=== PATIENT | female | born 1995 | race Two or more races ===

== ENCOUNTER 2024-10-23 22:44 | Emergency (ER) | payer MEDICAID, SELFPAY ==
[2024-10-23 22:45] VITALS: BMI 35.4
[2024-10-23 23:27] VITALS: BP 131/80; PULSE 68; RESP 18; TEMP 36.8; O2SAT 99
--- NOTE | 2024-10-24 00:30 | PD.EDRME ---
Rapid Medical Screening Exam RME Arrival date/time: 10/23/24 22:44 Chief Complaint: Abdominal Pain Time Seen by Provider: 10/24/24 00:12 Vital signs: Vital Signs Temperature 98.3 F 10/23/24 23:27 Pulse Rate 68 10/23/24 23:27 Respiratory Rate 18 10/23/24 23:27 Blood Pressure 131/80 H 10/23/24 23:27 Pulse Oximetry (%) 99 10/23/24 23:27 Oxygen Delivery Method Room Air 10/23/24 23:27 Vital signs reviewed by provider: Yes RME Narrative: 28-year-old female presents to the ED with a complaint of right lower quadrant abdominal pain. She states it began approximately 2 weeks and has become progressively worse. Last menstrual period was 09/24. She has had associated nausea and vomiting and states that today she passed out twice. She denies fever but has had chills. She denies diarrhea or constipation. I have greeted and performed a focused initial assessment of this patient. A comprehensive ED assessment and evaluation of the patient, analysis of all test results, and completion of the medical decision making process will be conducted by additional ED providers.
--- NOTE | 2024-10-24 00:32 | XR_ITS ---
Examination: Pelvic ultrasound, transabdominal, complete Technique: Transabdominal ultrasound of the pelvis performed using grayscale imaging Date and time of exam: October 24, 2024 0102 hours INDICATIONS: Right-sided pelvic pain beginning 2 weeks ago FINDINGS: Uterus 8.2 cm endometrial stripe 0.8 cm No uterine mass or intrauterine gestation Right ovary 3.4 cm arterial flow Left ovary 3.9 cm arterial flow IMPRESSION: Negative examination
[2024-10-24 01:14] LABS: Basophils % (Auto) 0 % (0-2.5); Eosinophils # (Auto) 0.4 Thou/mm3 (0.0-0.5); Eosinophils % (Auto) 5 % (0-10); Hematocrit 40.4 % (36.0-46.0); Hemoglobin 14.4 g/dL (12.0-16.0); Immature Granulocytes % (Auto) 0 % (0-0); Immature Granulocytes Auto 0.02 Thou/mm3 (0.00-0.00); Lymphocytes % (Auto) 39 % (10-50); Mean Corpuscular HGB Conc 35.6 g/dl (31.0-37.0); Mean Corpuscular Hemoglobin 30.4 pg (25.0-35.0); Mean Corpuscular Volume 85 fL (80-100); Monocytes # (Auto) 0.6 Thou/mm3 (0.0-0.8); Monocytes % (Auto) 8 % (0-12); Neutrophils # (Auto) 3.6 Thou/mm3 (1.8-7.7); Neutrophils % (Auto) 47 % (37-80); Nucleated Red Blood Cell % 0 /100 WBC (0); Platelet Count 229 Thou/mm3 (140-440); RDW Standard Deviation 40.2 fL (36.4-46.3); Red Blood Count 4.73 Miln/mm3 (4.00-5.20); White Blood Count 7.6 Thou/mm3 (3.6-11.0)
[2024-10-24 01:32] LABS: Alanine Aminotransferase 19 U/L (10-49); Albumin, Serum 4.6 gm/dL (3.5-5.0); Albumin/Globulin Ratio 1.5 (1.2-2.2); Alkaline Phosphatase 51 U/L (46-116); Amylase 83 U/L (30-118); Anion Gap 9 (7-16); Aspartate Amino Transferase 23 U/L (0-34); BUN/Creatinine Ratio 17 Ratio (12-20); Bilirubin,Total 0.6 mg/dL (0.3-1.2); Blood Urea Nitrogen 17 mg/dL (9-23); Calcium 8.6 mg/dL (8.3-10.6); Calcium (Corrected) 8.6 mg/dL (8.5-10.1); Carbon Dioxide 27.1 mMol/L (20.0-31.0); Chloride 104 mMol/L (98-107); Glucose 86 mg/dL (74-106); Lipase 52 U/L (12-53); Osmolality,Calculated 279 (275-295); Potassium 3.9 mMol/L (3.4-5.1); Sodium 140 mMol/L (136-145); Total Protein 7.6 gm/dL (5.7-8.2); eGFR > 60 See Note
[2024-10-24 01:59] LABS: Collection Type, Urine Clean Catch
[2024-10-24 02:07] LABS: HCG Qualitative,Urine Negative
[2024-10-24 02:09] LABS: Bacteria,Urine 2+; Bilirubin,Urine Negative (Negative); Blood,Urine Negative (Negative); Clarity,Urine Clear (Clear/Hazy); Color,Urine Lt-Yellow (Lt Yel-Yel); Glucose, Urine Negative (Negative); Ketones,Urine Trace (Negative); Leukocyte Esterase,Urine Negative (Negative); Nitrite,Urine Negative (Negative); Protein,Urine Trace (Neg - Trace); RBC,Urine 6 /hpf (0-3); Specific Gravity,Urine 1.036 (1.001-1.035); Squamous Epithelial Cell,Urine 3 /hpf (0-5); Urobilinogen,Urine Negative mg/dL (0.0-1.0); WBC,Urine 3 /hpf (0-5)
--- NOTE | 2024-10-24 02:48 | PRELIM_ITS ---
Pelvic ultrasound (transabdominal) with Doppler and wave Doppler spectral analysis. October 24, 2024 0102 hours Clinical history: Abdominal pain. Technique: Real-time, grayscale, transabdominal pelvic ultrasound was performed using Duplex scanning including arterial inflow, venous outflow, color and spectral Doppler. Comparison: No prior study is available for comparison. Findings: The uterus is normal in size measuring 8.2 x 5.5 x 4.2 cm. The endometrium is unremarkable and measures 0.8 cm. The right ovary measures 3.4 x 2.4 x 2.5 cm and is unremarkable. The left ovary measures 3.9 x 3.3 x 3.5 cm and is unremarkable. Both ovaries demonstrate color flow and spectral waveforms on Doppler evaluation. There is no adnexal mass. There is no free fluid on the submitted images. Impression: Unremarkable pelvic sonogram. No evidence of ovarian torsion. Report Electronically Signed By: Ramon Wright 10/24/2024 2:47:58 AM [EST]
[2024-10-24 04:54] VITALS: BP 118/68; PULSE 68; RESP 18; TEMP 36.7; O2SAT 98
--- NOTE | 2024-10-24 05:00 | PD.EDABDPN ---
ED Abdominal Pain RME/HPI General Chief Complaint: Abdominal Pain Stated complaint: RIGHT LOWER ABDOMINAL PAIN Time seen by provider: 10/24/24 00:12 Arrival date/time: 10/23/24 22:44 RME / HPI RME / HPI narrative: 28-year-old female presents to the ED with a complaint of right lower quadrant abdominal pain. She states it began approximately 2 weeks and has become progressively worse. Last menstrual period was 09/24. She has had associated nausea and vomiting and states that today she passed out twice. She denies fever but has had chills. She denies diarrhea or constipation. I have greeted and performed a focused initial assessment of this patient. A comprehensive ED assessment and evaluation of the patient, analysis of all test results, and completion of the medical decision making process will be conducted by additional ED providers. Related Data Previous Rx's ?Medication ?Instructions ?Recorded Hydrocodone/Acetaminophen * (NORCO 1 - 2 tab PO Q4H PRN PAIN #10 tabs 05/23/16 5/325 *) meloxicam 15 mg tablet 15 mg PO QDAY Pain #10 tabs 10/24/24 Allergies Allergy/AdvReac Type Severity Reaction Status Date / Time NKA* Allergy Uncoded 12/11/21 10:59 Course Orders Category Date Time Status NPO STAT Care 10/24/24 00:32 Active US pelvic complete Stat Exams 10/24/24 00:32 Taken Amylase Stat Lab 10/24/24 00:59 Completed CBC Stat Lab 10/24/24 00:59 Completed Comprehensive Metabolic Panel Stat Lab 10/24/24 00:59 Completed HCG Qualitative,Urine Stat Lab 10/24/24 01:52 Completed Lipase Stat Lab 10/24/24 00:59 Completed Urinalysis Stat Lab 10/24/24 01:52 Completed Urine Culture Stat Lab 10/24/24 00:32 Received Ketorolac Inj [Toradol Inj] Med 10/24/24 04:59 Once 30 mg IM X1 ONE Vital Signs Vital signs: Vital Signs Temperature 98.3 F 10/23/24 23:27 Pulse Rate 68 10/23/24 23:27 Respiratory Rate 18 10/23/24 23:27 Blood Pressure 131/80 H 10/23/24 23:27 Pulse Oximetry (%) 99 10/23/24 23:27 Oxygen Delivery Method Room Air 10/23/24 23:27 Abdominal Pain MDM Medications / Prescriptions Medication administrations:: Medication Administration History Ketorolac Tromethamine (Ketorolac Inj 60 Mg/2 Ml Vial) 30 mg IM X1 ONE Stop: 10/24/24 05:00 Discharge Plan Plan Patient Disposition: HOME (Self Care) Discharge Disposition comment: Stable and Improved Prescriptions/Referrals Prescriptions/Med Rec: New meloxicam 15 mg tablet 15 mg PO QDAY Qty: 10 0RF Rx Instructions: Do not start this medication until Friday morning. No Action Hydrocodone/Acetaminophen * (NORCO 5/325 *) 1 TAB tablet 1 - 2 tab PO Q4H PRN (Reason: PAIN) Qty: 10 0RF Rx Instructions: FOR PAIN Referrals: Jake Calvillo FNP [Primary Care Provider] - In 1 week Problem List Clinical Impression: Ruptured ovarian cyst Patient/Caregiver Discharge Instructions Education Materials: ED Ovarian Cyst Additional Instructions: It is likely that the cyst on your ovary that was previously noted on ultrasound from September 24, has ruptured, which is causing your pain. Follow-up with your primary care physician in 24 to 48 hours. Return to the ED for any new or worsening symptoms. Print Language: Brazilian Stand Alone Forms: Mikki Award Info., Patient Portal Info Letter ANSLEY/MIKE Supervising Physician ANSLEY/MIKE Supervising Physician: Dr. Whitley
[2024-10-24] MEDS: KETOROLAC INJ 30 MG/ML VIAL IM (05:04)
== END 2024-10-24 05:09 | disposition home or self-care (01) ==
PROVIDERS: Physician Assistant; Emergency Provider Emergency Medicine; PCP Nurse Practitioner Family
DX: N83.201 Unspecified ovarian cyst, right side (principal)
CPT/HCPCS: 36415; 76856; 80053; 81001; 81025; 82150; 83690; 85025; 87086; 96372; 99284; J1885

== ENCOUNTER 2024-11-09 13:57 | Emergency (ER) | payer MEDICAID, SELFPAY ==
[2024-11-09 13:58] VITALS: BMI 35.4
--- NOTE | 2024-11-09 14:04 | EKG_ITS ---
[facility] Test Date: 2024-11-09 Pat Name: FROILAN GODDARD Department: Room: - Gender: Female [employer]: : 1995 Requested By: ED Temporary Provider Order Number: [id number] Reading MD: ED Temporary Provider Measurements Intervals Dewey Rate: 81 P: 32 MO: 151 QRS: 2 QRSD: 86 T: 9 QT: 379 QTc: 442 Interpretive Statements SINUS RHYTHM POSSIBLE ANTERIOR MYOCARDIAL INFARCTION , PROBABLY OLD [30 ms Q WAVE IN V3/V4, OR R < 0.2 mV IN V4] No previous ECG available for comparison /store/S0/[id number].pdf
[2024-11-09 14:09] VITALS: BP 116/78; PULSE 87; RESP 20; TEMP 36.6; O2SAT 96
--- NOTE | 2024-11-09 14:15 | XR_ITS ---
Examination: CT brain head without contrast. 2-D sagittal coronal reconstructions Date and time of exam:November 09, 2024 1436 hours INDICATIONS: Patient fell today with injury to the forehead, including laceration CTDI: vol (mGy):49.7 DLP: (mGycm):944 Technique: Multiple CT axial sections of the brain have been obtained, 5 mm slice thickness. Contrast has not been administered. 2-D sagittal, coronal reconstructions have been obtained Low dose protocols were performed. One or more of the following dose reduction techniques were used; automated exposure control, adjustment of the mA and/or KV according to patient size, use of iterative reconstruction technique. Findings: No significant ventricular enlargement. Soft tissue defect right forehead soft tissue, image 27 Intra-axial or extra-axial hemorrhage density is not seen. No mass effect or midline shift Basal cisterns are not remarkable. Fourth ventricle is midline. Cranial vault intact. Significant maxillary antral ethmoid sinusitis Impression: Negative for acute hemorrhage, mass effect or midline shift
--- NOTE | 2024-11-09 14:16 | EDRME_ITS ---
Rapid Medical Screening Exam [facility] Arrival date/time: 11/09/24 13:57 28-year-old female with no known medical history presents to the emergency room with a chief complaint of dizziness, lightheadedness, and a syncopal episode that occurred 1 hour ago while trying to get in the shower. Patient states she lost consciousness and now has a laceration to her right eyebrow. I have greeted and performed a focused initial assessment of this patient. A comprehensive ED assessment and evaluation of the patient, analysis of all test results, and completion of the medical decision making process will be conducted by additional ED providers. Chief Complaint: Syncope / Near Syncope Vital signs: Vital Signs Temperature 97.8 F 11/09/24 14:09 Pulse Rate 87 11/09/24 14:09 Respiratory Rate 20 11/09/24 14:09 Blood Pressure 116/78 11/09/24 14:09 Pulse Oximetry (%) 96 11/09/24 14:09 Oxygen Delivery Method Room Air 11/09/24 14:09 Vital signs reviewed by provider: Yes
[2024-11-09 15:06] LABS: Basophils % (Auto) 0 % (0-2.5); Eosinophils # (Auto) 0.2 Thou/mm3 (0.0-0.5); Eosinophils % (Auto) 2 % (0-10); Hematocrit 41.1 % (36.0-46.0); Hemoglobin 14.9 g/dL (12.0-16.0); Immature Granulocytes % (Auto) 0 % (0-0); Immature Granulocytes Auto 0.01 Thou/mm3 (0.00-0.00); Lymphocytes # (Auto) 1.4 Thou/mm3 (1.0-4.8); Lymphocytes % (Auto) 16 % (10-50); Mean Corpuscular HGB Conc 36.3 g/dl (31.0-37.0); Mean Corpuscular Volume 83 fL (80-100); Monocytes # (Auto) 0.5 Thou/mm3 (0.0-0.8); Monocytes % (Auto) 6 % (0-12); Neutrophils # (Auto) 6.5 Thou/mm3 (1.8-7.7); Neutrophils % (Auto) 76 % (37-80); Nucleated Red Blood Cell % 0 /100 WBC (0); Platelet Count 239 Thou/mm3 (140-440); RDW Standard Deviation 38.2 fL (36.4-46.3); Red Blood Count 4.97 Miln/mm3 (4.00-5.20); White Blood Count 8.5 Thou/mm3 (3.6-11.0)
[2024-11-09 15:32] LABS: Alanine Aminotransferase 19 U/L (10-49); Albumin, Serum 4.4 gm/dL (3.5-5.0); Albumin/Globulin Ratio 1.6 (1.2-2.2); Alkaline Phosphatase 53 U/L (46-116); Anion Gap 10 (7-16); BUN/Creatinine Ratio 16 Ratio (12-20); Bilirubin,Total 0.6 mg/dL (0.3-1.2); Blood Urea Nitrogen 13 mg/dL (9-23); Calcium 8.7 mg/dL (8.3-10.6); Calcium (Corrected) 8.7 mg/dL (8.5-10.1); Carbon Dioxide 26.1 mMol/L (20.0-31.0); Chloride 105 mMol/L (98-107); Creatinine (Component) 0.8 mg/dL (0.6-1.3); Estimated Creatinine Clearance 109.9 mL/min (>60); Globulin 2.8 gm/dL (2.3-3.5); Glucose 99 mg/dL (74-106); Magnesium 1.9 mg/dL (1.6-2.6); Osmolality,Calculated 281 (275-295); Sodium 141 mMol/L (136-145); Total Protein 7.2 gm/dL (5.7-8.2); Troponin I < 0.020 ng/mL (0.0-0.045); eGFR > 60 See Note
[2024-11-09 15:34] LABS: Collection Type, Urine Clean Catch
[2024-11-09 15:39] LABS: Bacteria,Urine Rare; Bilirubin,Urine Negative (Negative); Blood,Urine Negative (Negative); Color,Urine Yellow (Lt Yel-Yel); Glucose, Urine Negative (Negative); Ketones,Urine Negative (Negative); Leukocyte Esterase,Urine Negative (Negative); Nitrite,Urine Negative (Negative); PH,Urine 5.5 (5.0-7.0); Protein,Urine 1+ (Neg - Trace); RBC,Urine 4 /hpf (0-3); Squamous Epithelial Cell,Urine 17 /hpf (0-5); Urobilinogen,Urine Negative mg/dL (0.0-1.0); WBC,Urine 2 /hpf (0-5)
[2024-11-09 15:39] LABS: B-Type Natriuretic Peptide < 20 pg/mL (0-100)
[2024-11-09 15:46] LABS: HCG Qualitative,Urine Negative
[2024-11-09 16:09] LABS: Clarity,Urine Hazy (Clear/Hazy)
[2024-11-09 17:46] VITALS: BP 102/64; PULSE 72; RESP 20; TEMP 36.6; O2SAT 97
[2024-11-09 18:43] VITALS: BP 121/77; PULSE 74; RESP 18; TEMP 36.8; O2SAT 94
[2024-11-09 18:46] LABS: Amphetamine/Methamp Scrn,U Negative (Negative); Barbiturate Screen,Urine Negative (Negative); Benzodiazepines Screen,Urine Negative (Negative); Benzoylecgonine Screen, Ur Negative (Negative); Fentanyl Screen,Urine Negative (Negative); Opiate Screen,Urine Negative (Negative); THC Screen,Urine Negative (Negative)
[2024-11-09] MEDS: DIPHTH,PERTUSS(ACELL),TET VAC 0.5 ML SYR- ADULT IMi (18:47)
[2024-11-09] MEDS: LIDOCAINE HCL 1% 20 ML VIAL INFL (18:49)
[2024-11-09 19:06] VITALS: BP 107/84; PULSE 75; RESP 14; TEMP 37; O2SAT 99
--- NOTE | 2024-11-09 21:36 | XR_ITS ---
Examination: Carotid arterial duplex scan, ultrasound. Date and time of exam: November 09, 2024 2146 hours INDICATIONS: Loss of consciousness episodes today Technique: Multiple sonographic images have been obtained of the carotid arteries and vertebral arteries, B-mode/grayscale imaging and Doppler spectral analysis and color flow Peak systolic and diastolic velocities have been recorded. Systolic diastolic ratios have been calculated. Findings: Right peak systolic velocities: Distal internal carotid artery peak systolic velocity is 0.8 M/sec Proximal internal carotid artery peak systolic velocity is 0.6 M/sec Carotid bifurcation peak systolic velocity is 1.1 M/sec External carotid artery peak systolic velocity is in M/sec Vertebral artery flow is antegrade. Left peak systolic velocities: Distal internal carotid artery peak systolic velocity is 0.7, M/sec Proximal internal carotid artery peak systolic velocity is 0.6 M/sec Carotid bifurcation peak systolic velocity is 1.3 M/sec External carotid artery peak systolic velocity is 0.9 M/sec Vertebral artery flow is antegrade Doppler waveform analysis demonstrates no spectral broadening Impression: Right internal carotid artery demonstrates 0-10% stenosis. Left internal carotid artery demonstrates 0-10% stenosis.
[2024-11-09] MEDS: BACITRACIN OINT 1 GM PACKET TOP (21:39)
--- NOTE | 2024-11-09 22:24 | EDNOTE_ITS ---
ED Syncope RME/HPI General Chief Complaint: Syncope / Near Syncope Stated Complaint: PASSED OUTx2 AND HIT HEAD, LAC TO FOREHEAD Time Seen by Provider: 11/09/24 18:34 Arrival date/time: 11/09/24 13:57 RME / HPI RME / HPI narrative: 11/09/24 13:57 28-year-old female with no known medical history presents to the emergency room with a chief complaint of dizziness, lightheadedness, and a syncopal episode that occurred 1 hour ago while trying to get in the shower. Patient states she lost consciousness and now has a laceration to her right eyebrow. I have greeted and performed a focused initial assessment of this patient. A comprehensive ED assessment and evaluation of the patient, analysis of all test results, and completion of the medical decision making process will be conducted by additional ED providers. --------- Dr. Cardenas?s Main ED Evaluation: 28yo female with no significant past medical history presents to the ED for a chief complaint of syncope. Patient states she was taking a shower when she passed out, reporting she did hit her head. Patient states she was crawling out of the shower and passed out again, so she came in for evaluation. Patient denies any neck pain, chest pain, abdominal pain, extremity pain, shortness of breath or any other associated symptoms. Related Data Previous Rx's ?Medication ?Instructions ?Recorded Hydrocodone/Acetaminophen * (NORCO 1 - 2 tab PO Q4H DC N PAIN #10 tabs 05/23/ 5/325 *) meloxicam 15 mg tablet 15 mg PO QDAY Pain #10 tabs 10/24/24 Allergies Allergy/AdvReac Type Severity Reaction Status Date / Time COVID-19 (SARS-CoV-2) Allergy Severe Difficulty Verified 11/09/24 14:03 vaccine, angelita Breathing Review of Systems Review of Systems Systems Reviewed: All systems reviewed, normal except as documented Past Medical History Past Medical History CARDIAC: Negative Congestive Heart Failure RESPIRATORY: Negative Chronic Obstructive Pulmonary Disease (COPD) GENITOURINARY: Negative Renal Disease ENDOCRINE: Negative Diabetes Mellitus Type 1 or Diabetes Mellitus Type 2 Social History SMOKING STATUS: Never smoker ED Exam Narrative Physical exam: GENERAL APPEARANCE: alert and oriented x 4, well-developed, well-nourished, no acute distress VITALS: All vitals were reviewed and the pulse ox is 99% on room air, which is normal according to my interpretation. HEENT: Normocephalic, 3 cm in length by 0.75 cm deep curvelinear laceration through the medial portion of the right eyebrow; pupils equal, round, reactive to light; EOMI; mucous membranes pink, moist; oropharynx clear NECK: Supple LUNGS: CTABL; no wheezes, no rales, no rhonchi HEART: Regular rate, regular rhythm; normal S1, S2; no murmurs ABDOMEN: non distended; normal BS; soft, no tenderness, no guarding, no rebound; no masses, no organomegaly, no hernia BACK: no CVA tenderness EXTREMITIES: atraumatic; no edema NEUROLOGIC: awake; alert and oriented x4; cranial nerves II-XII grossly intact; no focal sensory or motor deficits PSYCHIATRIC: appropriate mood and affect SKIN: warm, dry, normal color; no rashes Course Quality Measures none Orders Category Date Time Status EKG (ED ONLY) *Do not use* NOW Care 11/09/24 14:04 Completed Irrigate Wound NOW Care 11/09/24 20:03 Active Set Up Suture Tray STAT Care 11/09/24 14:15 Active Wound Care NOW Care 11/09/24 14:[address] head/brain wo con Stat Exams 11/09/24 14:15 Completed EKG (ED Only) Stat Exams 11/09/24 14:04 Draft US carotid duplex Stat Exams 11/09/24 21:36 Completed B-Type Natriuretic Peptide Stat Lab 11/09/24 14:53 Completed CBC Stat Lab 11/09/24 14:53 Completed Comprehensive Metabolic Panel Stat Lab 11/09/24 14:53 Completed Drug Screen,Urine Stat Lab 11/09/24 15:22 Completed HCG Qualitative,Urine Stat Lab 11/09/24 15:22 Completed Magnesium Stat Lab 11/09/24 14:53 Completed Troponin I Stat Lab 11/09/24 14:53 Completed Urinalysis Stat Lab 11/09/24 15:22 Completed Bacitracin Oint pkt Med 11/09/24 21:20 Discontinued 1 gm TOP X1 ONE Lidocaine 1% 20 ml [Xylocaine 1% 20 ML] Med 11/09/24 14:15 Discontinued 20 ml INFL X1 ONE TET,DIP/PERT AC (Adult)-Tdap [Boostrix Adult (Tdap) Med 11/09/24 14:15 Discontinued Vacc] 0.5 ml IMI .ONCE ONE Vital Signs Vital signs: Vital Signs Temperature 97.8 F 11/09/24 14:09 Pulse Rate 87 11/09/24 14:09 Respiratory Rate 20 11/09/24 14:09 Blood Pressure 116/78 11/09/24 14:09 Pulse Oximetry (%) 96 11/09/24 14:09 Oxygen Delivery Method Room Air 11/09/24 14:09 Procedures -ED Laceration Laceration 1: Site: face (eyebrow) Side (If applicable): right Size (cm): 3 Description: other (curvelinear) Depth: involves muscle layer Local Anesthetic: lidocaine 1% Amount of anesthesia used (mL): 3 Pre-repair: irrigated extensively, deep structures intact and wound margins revised Skin layer closed with: other (ethilon) Suture size (cm): 4-0 Number of sutures: 4 Technique: simple, interrupted (3) and running (1) Syncope Patient data External records reviewed:: [facility] previous records (Per chart review, patient was seen here on 10/24/24 for ruptured ovarian cyst.) Clinical information provided by:: patient Social determinants that could affect healthcare access:: none Patient has the following chronic illnesses:: none How is presenting disease/condition affected by chronic disease/condition?: no chronic disease Evaluation data The following diagnostics were reviewed and interpreted by me:: lab results, radiology exam(s) and EKG tracing(s) Lab and/or radiology exams considered but not ordered:: none Interpretation Summary: CBC normal, CMP normal, Troponin normal, UA unremarkable, HCG negative, UDS negative. EKG done at 1410, NSR, rate of 81, poor R wave progression, normal intervals, no STEMI, according to my interpretation. [facility] Report Signed Patient: FROILAN GODDARD. Record#: [id number] Birthdate: 1995 Age/Sex: 28 / F Location: [facility] Attending Dr: Ordering Physician: Carlos Arellano Date of Service: 11/09/24 Procedure(s): CT head/brain wo con Accession Number(s): [id number] cc: Jake Calvillo; Carlos Arellano; Lupillo Spencer MD~ Examination: CT brain head without contrast. 2-D sagittal coronal reconstructions Date and time of exam:November 09, 2024 1436 hours INDICATIONS: Patient fell today with injury to the forehead, including laceration CTDI: vol (mGy):49.7 DLP: (mGycm):944 Technique: Multiple CT axial sections of the brain have been obtained, 5 mm slice thickness. Contrast has not been administered. 2-D sagittal, coronal reconstructions have been obtained Low dose protocols were performed. One or more of the following dose reduction techniques were used; automated exposure control, adjustment of the mA and/or KV according to patient size, use of iterative reconstruction technique. Findings: No significant ventricular enlargement. Soft tissue defect right forehead soft tissue, image 27 Intra-axial or extra-axial hemorrhage density is not seen. No mass effect or midline shift Basal cisterns are not remarkable. Fourth ventricle is midline. Cranial vault intact. Significant maxillary antral ethmoid sinusitis Impression: Negative for acute hemorrhage, mass effect or midline shift Dictated By: Lupillo Spencer MD Signed By: <Electronically signed by Lupillo Spencer MD in OV> 11/09/24 1454 [facility] Report Signed Patient: FROILAN GODDARD. Record#: [id number] Birthdate: 1995 Age/Sex: 28 / F Location: [facility] Attending Dr: Ordering Physician: Sharon Cardenas MD Date of Service: 11/09/24 Procedure(s): US carotid duplex Accession Number(s): [id number] cc: Jake Calvillo; Lupillo Spencer MD; Sharon Cardenas MD~ Examination: Carotid arterial duplex scan, ultrasound. Date and time of exam: November 09, 2024 2146 hours INDICATIONS: Loss of consciousness episodes today Technique: Multiple sonographic images have been obtained of the carotid arteries and vertebral arteries, B-mode/grayscale imaging and Doppler spectral analysis and color flow Peak systolic and diastolic velocities have been recorded. Systolic diastolic ratios have been calculated. Findings: Right peak systolic velocities: Distal internal carotid artery peak systolic velocity is 0.8 M/sec Proximal internal carotid artery peak systolic velocity is 0.6 M/sec Carotid bifurcation peak systolic velocity is 1.1 M/sec External carotid artery peak systolic velocity is in M/sec Vertebral artery flow is antegrade. Left peak systolic velocities: Distal internal carotid artery peak systolic velocity is 0.7, M/sec Proximal internal carotid artery peak systolic velocity is 0.6 M/sec Carotid bifurcation peak systolic velocity is 1.3 M/sec External carotid artery peak systolic velocity is 0.9 M/sec Vertebral artery flow is antegrade Doppler waveform analysis demonstrates no spectral broadening Impression: Right internal carotid artery demonstrates 0-10% stenosis. Left internal carotid artery demonstrates 0-10% stenosis. Dictated By: Lupillo Spencer MD Signed By: <Electronically signed by Lupillo Spencer MD in OV> 11/09/24 2223 Medications / Prescriptions Medications or Prescriptions considered but not ordered:: none Medication administrations:: Medication Administration History Discontinued Medications Bacitracin (Bacitracin Oint 1 Gm Packet) 1 gm TOP X1 ONE Stop: 11/09/24 21:21 Last Admin: 11/09/24 21:39 Dose: 1 gm Documented By: DT Diphtheria/Tetanus/Acell Pertussis (Diphth,Pertuss(Acell),Tet Vac 0.5 Ml Syr- Adult) 0.5 ml IMi .ONCE ONE Stop: 11/09/24 14:16 Last Admin: 11/09/24 18:47 Dose: 0.5 ml Documented By: RD Lidocaine HCl (Lidocaine Hcl 1% 20 Ml Vial) 20 ml INFL X1 ONE Stop: 11/09/24 14:16 Last Admin: 11/09/24 18:49 Dose: 20 ml Documented By: RD see above Consultations Consultation(s) initiated? (list below): No Diagnosis Syncope Differential Diagnosis: other (syncope, seizure, near syncope) Most likely diagnosis given after review of the tests above:: see clinical impression below Admission Indicated Admission indicated?: not indicated Admission Request Was there a request for admission?: No Disposition Plan Disposition Plan: Discharge Discharge Attestation Discharge Attestation: The patient and all family members were given an opportunity to ask questions a nd understood the discharge instructions. Discharge instructions specifically effects, indications for sooner follow up or return to the emergency department, and the expected course of current diagnosis. Patient condition: Stable Discharge Plan Plan Patient Disposition: HOME (Self Care) Prescriptions/Referrals Prescriptions/Med Rec: No Action Hydrocodone/Acetaminophen * (NORCO 5/325 *) 1 TAB tablet 1 - 2 tab PO Q4H PRN (Reason: PAIN) Qty: 10 0RF Rx Instructions: FOR PAIN meloxicam 15 mg tablet 15 mg PO QDAY Qty: 10 0RF Rx Instructions: Do not start this medication until Friday morning. Referrals: Jake Calvillo FNP [Primary Care Provider] - In 1 week Problem List Clinical Impression: Syncope, Laceration of eyebrow and forehead Patient/Caregiver Discharge Instructions Education Materials: Causes of Syncope, Diagnosing Syncope, ED Laceration, Fac e: Stitches or Tape Print Language: Panamanian Stand Alone Forms: Mikki Award Info., Patient Portal Info Letter
[2024-11-09 23:06] VITALS: BP 128/35; PULSE 75; RESP 14; TEMP 37; O2SAT 99
== END 2024-11-09 23:09 | disposition home or self-care (01) ==
PROVIDERS: Nurse Practitioner Family; Emergency Provider Emergency Medicine; PCP Nurse Practitioner Family
DX: S01.111A Laceration without foreign body of right eyelid and periocular area, initial encounter (principal); S09.90XA Unspecified injury of head, initial encounter; I65.23 Occlusion and stenosis of bilateral carotid arteries; W19.XXXA Unspecified fall, initial encounter; R94.31 Abnormal electrocardiogram [ECG] [EKG]; Z23 Encounter for immunization
CPT/HCPCS: 12013; 36415; 70450; 80053; 80307; 81001; 81025; 83735; 83880; 84484; 85025; 90471; 90715; 93005; 93880; 99284; J3490; A9270